=== PATIENT | male | born 1955 | race Caucasian/White ===

== ENCOUNTER → 2019-11-15 | Outpatient (CLI) | payer BC ==
[~2019-11-15] MED LIST: AMLO10TA5 PO; ATEN50TA2 PO; ATOR80TA59 PO; D 202000 PO; DOXA1TAB40 PO; ENAL20TA PO; EZET10TA21 PO; FEBU40TA4 PO; FENO145T13 PO; GLIP5TAB20 PO; JANU100T PO; OMEG1CAP4 PO; SYMB16INH INH; TERB250T12 PO
--- NOTE | 2019-11-15 10:43 | REP ---
ULTRASOUND ABDOMEN: Real-time sonographic evaluation of the abdomen performed. Formally a polyp is seen along the inner wall of the gallbladder without evidence of gallstones or gallbladder wall thickening. No ascites is seen. There is no intrahepatic or extrahepatic biliary dilatation, common bile duct measuring 6 mm. The liver demonstrates a cyst with thin internal septations measuring 3.9 x 3.7 x 5.3 cm, located in the right lobe. Otherwise there is diffuse hyperechoic echotexture of the liver compatible with diffuse fibrofatty infiltration. Pancreas is not seen due to overlying bowel gas. Spleen is enlarged. It measures 16.0 x 6.5 x 16.0 cm for a splenic index of 1664. Kidneys are normal in size and echotexture, right kidney measuring 13.6 x 5.7 x 6.9 cm and left kidney 14.6 x 4.5 x 6.9 cm. There is no hydronephrosis bilaterally. There are multiple bilateral renal cysts. The largest on the right is in the lateral mid aspect 4.4 x 4.2 x 4.2 cm and the largest on the left is in the lateral mid aspect 3.7 x 3.5 x 3.2 cm. Medially a central anechoic area may represent an extrarenal pelvis or peripelvic cyst of left kidney, proximally 2.6 cm in diameter. Bowel gas obscures portions of the abdominal aorta. There is no gross abdominal aortic aneurysm, proximally AP diameter of the abdominal aorta is 2.8 cm and distally 2.0 cm. IMPRESSION: Moderate splenomegaly. Gallbladder polyp 4 mm in diameter. Cyst with thin internal septations right lobe of liver. Multiple bilateral renal cysts. Electronically Signed by Jordy Armenta MD 11/15/2019 01:41 P
== END ==
LOC: M RAD 08:51
PROVIDERS: ATTEND Internal Medicine Hematology
DX: R16.1 Splenomegaly, not elsewhere classified (principal); K82.4 Cholesterolosis of gallbladder; Q44.6 Cystic disease of liver; N28.1 Cyst of kidney, acquired; D69.6 Thrombocytopenia, unspecified; K76.0 Fatty (change of) liver, not elsewhere classified

== ENCOUNTER → 2023-12-28 | Outpatient (CLI) | payer MEDICARE ==
[~2023-12-28] MED LIST changes: -AMLO10TA5 PO; +AMLO1TAB25 PO; +ENAL1TAB52 PO; -ENAL20TA PO; -FENO145T13 PO; +FENO145T7 PO; -OMEG1CAP4 PO; +OMEG1CAP85 PO; -TERB250T12 PO; +TERB250T91 PO
[2023-12-28 14:35] LABS: HEMATOCRIT 40.6 % (42.0-52.0); HEMOGLOBIN 14.2 g/dl (13.5-17.5); MEAN CORPUSCULAR HEMOGLOBIN 32.5 pg (27.0-33.0); MEAN CORPUSCULAR VOLUME 92.9 fl (80.0-96.0); PLATELET COUNT, AUTOMATED 135 10^3/uL (150-450); RED BLOOD COUNT 4.37 10^6/uL (4.30-6.10); WHITE BLOOD COUNT 5.9 10^3/uL (4.0-10.0)
[2023-12-28 14:51] LABS: PROSTATIC SPECIFIC AG MONITOR 0.21 NG/ML (< 4.00)
[2023-12-28 14:53] LABS: BLOOD UREA NITROGEN 26 MG/DL (9-23); CARBON DIOXIDE LEVEL 25 MMOL/L (20-31); CHLORIDE LEVEL 104 MMOL/L (98-107); CHOLESTEROL LEVEL 134 MG/DL (<200); CHOLESTEROL RISK RATIO 3.47 (<5); CREATININE FOR GFR 1.36 MG/DL (0.70-1.30); GLOMERULAR FILTRATION RATE 55.3 (>49); GLUCOSE, FASTING 223 MG/DL (74-106); HDL CHOLESTEROL 38.6 MG/DL (>40); NON-HDL-C 95.4 MG/DL; POTASSIUM SERUM 4.2 MMOL/L (3.5-5.1); SODIUM LEVEL 136 MMOL/L (136-145); TRIGLYCERIDES LEVEL 492 MG/DL (<150)
[2023-12-28 14:59] LABS: HEMOGLOBIN A1c 7.3 % (4.0-6.0)
== END ==
LOC: M LAB 13:46
PROVIDERS: ATTEND Registered Nurse
DX: E11.65 Type 2 diabetes mellitus with hyperglycemia (principal); E78.00 Pure hypercholesterolemia, unspecified; Z80.42 Family history of malignant neoplasm of prostate; D69.6 Thrombocytopenia, unspecified; Z12.5 Encounter for screening for malignant neoplasm of prostate; D64.9 Anemia, unspecified

== ENCOUNTER → 2025-06-27 | Outpatient (CLI) | payer MEDICARE ==
[~2025-06-27] MED LIST changes: +GLIP-318 PO; -GLIP5TAB20 PO; +JARD1TAB3 PO; +METF-838 PO; +OMEG-28 PO; -OMEG1CAP85 PO; +PIOG1TAB36 PO
== END ==
LOC: M ONCR 09:37
PROVIDERS: ATTEND General Practice
DX: C44.229 Squamous cell carcinoma of skin of left ear and external auricular canal (principal); Z98.890 Other specified postprocedural states; Z79.84 Long term (current) use of oral hypoglycemic drugs; Z79.51 Long term (current) use of inhaled steroids; Z79.899 Other long term (current) drug therapy